=== PATIENT | male | born 1940 | race Caucasian/White ===

== ENCOUNTER 2016-09-01 07:22 | Day surgery (SDC) | payer BC, MEDICARE ==
[2016-09-01] MEDS ORDERED: fentaNYL 250 MCG/5 ML VIAL IVP ONE (08:00)
[2016-09-01] MEDS ORDERED: MIDAZOLAM 2 MG/2 ML VIAL IVP ONE (08:00)
[2016-09-01] MEDS ORDERED: LACTATED RINGERS 1,000 ML IV ONE (08:00)
[2016-09-01] MEDS ORDERED: BENZOCAINE/TETRACAINE/BUTAMBEN SPRAY 56 GM TOP ONE (08:19)
== END 2016-09-01 07:23 | disposition home or self-care (01) ==
PROC: 0DB38ZX Excision of Lower Esophagus, Via Natural or Artificial Opening Endoscopic, Diagnostic (ICD-10-PCS; 2016-09-01)
PROC: 0DBK8ZX Excision of Ascending Colon, Via Natural or Artificial Opening Endoscopic, Diagnostic (ICD-10-PCS; 2016-09-01)
PROC: 0DBH8ZX Excision of Cecum, Via Natural or Artificial Opening Endoscopic, Diagnostic (ICD-10-PCS; 2016-09-01)
PROC: 0DB98ZX Excision of Duodenum, Via Natural or Artificial Opening Endoscopic, Diagnostic (ICD-10-PCS; principal; 2016-09-01 08:30)
PROC: 0DB68ZX Excision of Stomach, Via Natural or Artificial Opening Endoscopic, Diagnostic (ICD-10-PCS; 2016-09-01 08:30)
DX: K29.50 Unspecified chronic gastritis without bleeding (principal); K44.9 Diaphragmatic hernia without obstruction or gangrene; K22.70 Barrett's esophagus without dysplasia; D12.0 Benign neoplasm of cecum; D12.2 Benign neoplasm of ascending colon; K22.2 Esophageal obstruction; K20.9 Esophagitis, unspecified; K57.30 Diverticulosis of large intestine without perforation or abscess without bleeding; K92.1 Melena
CPT/HCPCS: 43239; 45385; A9270; J3010; J7120

== ENCOUNTER 2016-09-05 11:04 | Emergency (ER) | payer BC ==
[2016-09-05] MEDS ORDERED: ACETAMINOPHEN 325 MG TABLET PO STA (12:21)
[2016-09-05] MEDS ORDERED: ACETAMINOPHEN 325 MG TABLET PO ONE (12:24)
== END 2016-09-05 14:57 | disposition home or self-care (01) ==
DX: R60.0 Localized edema (principal); M25.572 Pain in left ankle and joints of left foot; E03.9 Hypothyroidism, unspecified
CPT/HCPCS: 73610; 93971; 99283; A9270

== ENCOUNTER 2016-10-06 08:00 | Outpatient (CLI) | payer BC | END 2016-10-06 23:59 | disposition home or self-care (01) | DX: M10.9 Gout, unspecified (principal) ==

== ENCOUNTER 2017-05-04 12:23 | Day surgery (SDC) | payer BC ==
[2017-05-04] MEDS ORDERED: LACTATED RINGERS 1,000 ML IV ONE (12:48)
[2017-05-04] MEDS ORDERED: MIDAZOLAM 2 MG/2 ML VIAL IVP ONE (13:27)
[2017-05-04] MEDS ORDERED: fentaNYL 100 MCG/2 ML VIAL IVP ONE (13:27)
[2017-05-04] MEDS ORDERED: BENZOCAINE/TETRACAINE/BUTAMBEN SPRAY 56 GM TOP ONE (13:30)
[2017-05-04 13:57] VITALS: BP 110/54
== END 2017-05-04 12:24 | disposition home or self-care (01) ==
LOC: SDS 12:23
PROVIDERS: ATTEND Surgery
PROC: 0DB48ZX Excision of Esophagogastric Junction, Via Natural or Artificial Opening Endoscopic, Diagnostic (ICD-10-PCS; principal; 2017-05-04 13:30)
DX: K22.70 Barrett's esophagus without dysplasia (principal); K44.9 Diaphragmatic hernia without obstruction or gangrene; Z85.46 Personal history of malignant neoplasm of prostate
CPT/HCPCS: 43239; A9270; J7120

== ENCOUNTER 2017-10-19 09:54 | Outpatient (CLI) | payer BC ==
[2017-10-19 10:42] LABS: HB2 TOTAL 14.6 g/dL; HEMOGLOBIN A1C 0.55 g/dL; HEMOGLOBIN A1C % 5.6 % (4.6-6.2)
== END 2017-10-19 09:55 | disposition home or self-care (01) ==
LOC: LAB 09:54
PROVIDERS: ATTEND Internal Medicine
DX: E03.9 Hypothyroidism, unspecified (principal); R73.01 Impaired fasting glucose
CPT/HCPCS: 36415; 83036; 84443

== ENCOUNTER 2019-08-08 15:29 | Outpatient (CLI) | payer BC ==
--- NOTE | 2019-08-08 17:47 | Ultrasound Report ---
Reason: LEG PAIN, EDEMA Procedure Date: 08/08/2019 Accession Number: [id number] / [id number] Procedure: US - Duplex Ext Veins Left CPT Code: Final Report FULL RESULT: EXAM: LEFT LOWER EXTREMITY VENOUS ULTRASOUND EXAM DATE: 08/08/2019 05:25 PM. CLINICAL HISTORY: Left leg pain and edema. COMPARISON: DUPLEX EXT VEINS LEFT 09/05/2016 1:15 PM. TECHNIQUE: Real-time sonographic vascular imaging was performed by the government relations director through the lower extremity utilizing both color-flow and Doppler spectral analysis. Multiple member services representative static images were saved for review. FINDINGS: Common Femoral Vein (CFV): Normal. CFV-GSV Junction: Normal. Profunda Femoral Vein (PFV): Normal. Femoral Vein (FV) Prox: Normal. Femoral Vein (FV) Mid: Normal. Femoral Vein (FV) Dist: Normal. Popliteal Vein: Normal. Posterior Tibial Veins: Limited visualization. Peroneal Veins: Limited visualization. IMPRESSION: No evidence for deep venous thrombosis. [facility] The call report notification system was initiated by Dr. Cory Gnozales at 05:46 PM on 08/08/2019.
== END 2019-08-08 15:30 | disposition home or self-care (01) ==
LOC: DI 15:29
PROVIDERS: ATTEND Internal Medicine
DX: M79.662 Pain in left lower leg (principal); R60.9 Edema, unspecified

== ENCOUNTER 2019-08-09 09:42 | Outpatient (CLI) | payer BC ==
[2019-08-09 09:58] LABS: BASOPHILS % (AUTO) 0.4 %; EOSINOPHILS # (AUTO) 0.1 10^3/uL (0.0-0.7); EOSINOPHILS % (AUTO) 1.5 %; LYMPHOCYTES # (AUTO) 1.1 10^3/uL (1.5-3.5); LYMPHOCYTES % (AUTO) 24.1 %; MEAN CORPUSCULAR HEMOGLOBIN 30.3 pg (27.0-31.0); MEAN CORPUSCULAR HGB CONC 32.2 g/dL (32.0-36.0); MEAN CORPUSCULAR VOLUME 94.2 fL (80.0-94.0); MEAN PLATELET VOLUME 10.2 fL (7.4-11.4); MONOCYTES # (AUTO) 0.6 10^3/uL (0.0-1.0); MONOCYTES % (AUTO) 13.6 %; NEUTROPHILS # (AUTO) 2.8 10^3/uL (1.5-6.6); NEUTROPHILS % (AUTO) 59.8 %; PLT - PLATELET COUNT 169 10^3/uL (130-450); RED BLOOD COUNT 4.62 10^6/uL (4.70-6.10); RED CELL DISTRIBUTION WIDTH 13.7 % (12.0-15.0); WHITE BLOOD COUNT 4.6 x10^3/uL (4.8-10.8)
[2019-08-09 10:14] LABS: HB2 TOTAL 14.5 g/dL; HEMOGLOBIN A1C 0.66 g/dL; HEMOGLOBIN A1C % 6.3 % (4.6-6.2)
[2019-08-09 10:17] LABS: ALBUMIN/GLOBULIN RATIO 1.3 (1.0-2.2); ALKALINE PHOSPHATASE 52 IU/L (42-121); ALT ALANINE AMINOTRANSFERASE 24 IU/L (10-60); AST ASPARTATE AMINOTRANSFERASE 19 IU/L (10-42); BILIRUBIN,TOTAL 0.6 mg/dL (0.2-1.0); BUN - BLOOD UREA NITROGEN 18 mg/dL (6-20); CALCIUM 8.7 mg/dL (8.5-10.3); CARBON DIOXIDE - CO2 28 mmol/L (21-32); CHLORIDE 105 mmol/L (101-111); CHOL/HDL RATIO 4.4 (<5.0); CHOLESTEROL 170 mg/dL; CREATININE 1.2 mg/dL (0.6-1.2); GFR - MDRD 59 (>89); GLUCOSE 112 mg/dL (70-100); HDL CHOLESTEROL 39 mg/dL; LDL CHOLESTEROL,CALCULATED 107 mg/dL; LDL/HDL RATIO 2.7 (<3.6); SODIUM 141 mmol/L (135-145); URIC ACID 7.2 mg/dL (2.6-7.2); VLDL CHOLESTEROL 24 mg/dL
== END 2019-08-09 09:43 | disposition home or self-care (01) ==
LOC: LAB 09:42
PROVIDERS: ATTEND Internal Medicine
DX: C61 Malignant neoplasm of prostate (principal); R73.01 Impaired fasting glucose; M10.9 Gout, unspecified; Z13.6 Encounter for screening for cardiovascular disorders; Z79.899 Other long term (current) drug therapy; R05 Cough; M79.669 Pain in unspecified lower leg; H40.9 Unspecified glaucoma; I26.99 Other pulmonary embolism without acute cor pulmonale; K22.70 Barrett's esophagus without dysplasia; E03.9 Hypothyroidism, unspecified
CPT/HCPCS: 36415; 80053; 80061; 83036; 83721; 84153; 84443; 84550; 85025

== ENCOUNTER 2019-09-18 07:51 | Day surgery (SDC) | payer BC ==
[2019-09-18] MEDS ORDERED: LACTATED RINGERS 1,000 ML IV ONE (08:30)
[2019-09-18] MEDS ORDERED: LIDO GARGLE 30 ML BOTTLE ONE (08:32)
[2019-09-18] MEDS ORDERED: fentaNYL 250 MCG/5 ML VIAL IVP ONE (08:45)
[2019-09-18] MEDS ORDERED: MIDAZOLAM 2 MG/2 ML VIAL IVP ONE (08:45)
[2019-09-18 09:56] VITALS: BP 139/80
[2019-09-18] MEDS ORDERED: LIDO GARGLE 30 ML BOTTLE PO ONE (10:22)
== END 2019-09-18 07:52 | disposition home or self-care (01) ==
LOC: SDS 07:51
PROVIDERS: ATTEND Internal Medicine Gastroenterology
PROC: 0DB38ZX Excision of Lower Esophagus, Via Natural or Artificial Opening Endoscopic, Diagnostic (ICD-10-PCS; 2019-09-18)
PROC: 0DB68ZZ Excision of Stomach, Via Natural or Artificial Opening Endoscopic (ICD-10-PCS; 2019-09-18)
PROC: 0DJD8ZZ Inspection of Lower Intestinal Tract, Via Natural or Artificial Opening Endoscopic (ICD-10-PCS; principal; 2019-09-18 09:15)
PROC: 0DB48ZX Excision of Esophagogastric Junction, Via Natural or Artificial Opening Endoscopic, Diagnostic (ICD-10-PCS; 2019-09-18 09:15)
DX: K22.70 Barrett's esophagus without dysplasia (principal); Z12.11 Encounter for screening for malignant neoplasm of colon; K31.7 Polyp of stomach and duodenum; K57.30 Diverticulosis of large intestine without perforation or abscess without bleeding; D17.5 Benign lipomatous neoplasm of intra-abdominal organs; Z86.010 Personal history of colon polyps; E03.9 Hypothyroidism, unspecified; E66.9 Obesity, unspecified; Z68.35 Body mass index [BMI] 35.0-35.9, adult; M10.9 Gout, unspecified; H40.9 Unspecified glaucoma; Z90.49 Acquired absence of other specified parts of digestive tract; Z90.79 Acquired absence of other genital organ(s); Z85.46 Personal history of malignant neoplasm of prostate; Z87.891 Personal history of nicotine dependence; Z79.899 Other long term (current) drug therapy
CPT/HCPCS: 43239; A9270; G0105; J3010; J7120

== ENCOUNTER 2020-06-03 15:25 | Outpatient (CLI) | payer BC | END 2020-06-03 15:26 | disposition home or self-care (01) | LOC: LAB 15:25 | PROVIDERS: ATTEND Internal Medicine | DX: B34.9 Viral infection, unspecified (principal); Z20.828 Contact with and (suspected) exposure to other viral communicable diseases ==

== ENCOUNTER 2021-10-13 08:00 | Outpatient (CLI) | payer BC ==
[2021-10-13 16:43] LABS: BASOPHILS % (AUTO) 0.7 %; EOSINOPHILS # (AUTO) 0.3 10^3/uL (0.0-0.7); EOSINOPHILS % (AUTO) 5.6 %; HCT - HEMATOCRIT 45.5 % (42.0-52.0); HGB - HEMOGLOBIN 14.5 g/dL (14.0-18.0); LYMPHOCYTES # (AUTO) 1.4 10^3/uL (1.5-3.5); LYMPHOCYTES % (AUTO) 24.1 %; MEAN CORPUSCULAR HGB CONC 31.9 g/dL (32.0-36.0); MEAN CORPUSCULAR VOLUME 97.4 fL (80.0-94.0); MEAN PLATELET VOLUME 11.4 fL (7.4-11.4); MONOCYTES # (AUTO) 0.6 10^3/uL (0.0-1.0); MONOCYTES % (AUTO) 9.8 %; NEUTROPHILS # (AUTO) 3.4 10^3/uL (1.5-6.6); NEUTROPHILS % (AUTO) 59.1 %; PLT - PLATELET COUNT 200 10^3/uL (130-450); RED BLOOD COUNT 4.67 10^6/uL (4.70-6.10); RED CELL DISTRIBUTION WIDTH 13.4 % (12.0-15.0); WHITE BLOOD COUNT 5.7 x10^3/uL (4.8-10.8)
[2021-10-13 17:04] LABS: ALBUMIN 4.1 g/dL (3.2-5.5); ALBUMIN/GLOBULIN RATIO 1.2 (1.0-2.2); ALKALINE PHOSPHATASE 45 IU/L (42-121); ALT ALANINE AMINOTRANSFERASE 17 IU/L (10-60); AST ASPARTATE AMINOTRANSFERASE 14 IU/L (10-42); BILIRUBIN,TOTAL 0.5 mg/dL (0.2-1.0); BUN - BLOOD UREA NITROGEN 24 mg/dL (6-20); CALCIUM 8.9 mg/dL (8.5-10.3); CARBON DIOXIDE - CO2 27 mmol/L (21-32); CHLORIDE 104 mmol/L (101-111); CHOL/HDL RATIO 4.2 (<5.0); CHOLESTEROL 199 mg/dL; CREATININE 1.4 mg/dL (0.6-1.2); GFR - MDRD 49 (>89); GLUCOSE 103 mg/dL (70-100); HDL CHOLESTEROL 47 mg/dL; LDL CHOLESTEROL,CALCULATED 122 mg/dL; LDL/HDL RATIO 2.6 (<3.6); POTASSIUM 4.1 mmol/L (3.5-5.0); SODIUM 139 mmol/L (135-145); TOTAL PROTEIN 7.4 g/dL (6.7-8.2); TRIGLYCERIDES 148 mg/dL; URIC ACID 6.9 mg/dL (2.6-7.2); VLDL CHOLESTEROL 30 mg/dL
[2021-10-13 17:07] LABS: PSA TOTAL 0.02 ng/mL (0.000-2.000)
[2021-10-13 20:04] LABS: ESTIMATED AVERAGE GLUCOSE 120 mg/dL (70-100); HEMOGLOBIN A1c% 5.8 % (4.27-6.07)
== END 2021-10-13 23:59 ==
LOC: LAB.R 08:00
PROVIDERS: ATTEND Internal Medicine
DX: Z00.00 Encounter for general adult medical examination without abnormal findings (principal); K22.70 Barrett's esophagus without dysplasia; H40.9 Unspecified glaucoma; M10.9 Gout, unspecified; Z86.010 Personal history of colon polyps; Z86.718 Personal history of other venous thrombosis and embolism; Z86.711 Personal history of pulmonary embolism; E03.9 Hypothyroidism, unspecified; R73.01 Impaired fasting glucose; C61 Malignant neoplasm of prostate
CPT/HCPCS: 80053; 80061; 83036; 83721; 84153; 84443; 84550; 85025

== ENCOUNTER 2021-10-15 12:17 | Outpatient (CLI) | payer BC ==
--- NOTE | 2021-10-15 14:49 | XRAY Report ---
PROCEDURE: Hip w/Pelvis 2-3V LT INDICATIONS: LT HIP PAIN TECHNIQUE: AP pelvis with lateral view(s) of the left hip(s). COMPARISON: None. FINDINGS: Bones: No fractures or dislocations. Pelvic ring appears intact. No suspicious bony lesions. Mild bilateral hip degenerative change. Soft tissues: The visualized bowel gas pattern is normal. No suspicious soft tissue calcifications. Extensive pelvic surgical clips. IMPRESSION: Mild bilateral hip degenerative change. No evidence acute bony abnormality of the pelvis and left hip. If clinical suspicion and/or symptoms persist, further assessment with repeat plain films or advanced imaging (e.g., CT, MRI, or bone scan) may be helpful for further assessment. Reviewed by: Amanuel Torrez MD on 10/15/2021 2:48 PM PST Approved by: Amanuel Torrez MD on 10/15/2021 2:48 PM PST Station ID: [id number]
== END 2021-10-15 12:18 | disposition home or self-care (01) ==
LOC: DI 12:17
PROVIDERS: ATTEND Internal Medicine
DX: M16.0 Bilateral primary osteoarthritis of hip (principal)

== ENCOUNTER 2022-08-21 10:38 | Emergency (ER) | payer BC ==
--- NOTE | 2022-08-21 11:14 | XRAY Report ---
PROCEDURE: Ankle 3 View LT INDICATIONS: Trauma TECHNIQUE: 3 views of the ankle were acquired. COMPARISON: None FINDINGS: Bones: There is an oblique distal fibular fracture extending to the articular surface. Ankle mortise is normally aligned. No suspicious bony lesions. Soft tissues: No tibiotalar joint effusion. Achilles tendon appears normal. IMPRESSION: Oblique distal fibular fracture extending to the articular surface. Reviewed by: Amanuel Torrez MD on 08/21/2022 11:13 AM [facility] Approved by: Amanuel Torrez MD on 08/21/2022 11:13 AM PST Station ID: [id number]
--- NOTE | 2022-08-21 12:42 | ED Physician Documentation ---
PD HPI LOWER EXT INJURY - Stated complaint Stated Complaint: FALL ON THE ICE - Chief complaint Chief Complaint: Trauma Ext - History obtained from History obtained from: Patient - History of Present Illness PD HPI LOW EXT INJURY LOCATION: Left, Ankle Type of injury: Fall (slipped on icy surface) Where injury occurred: Home Timing - onset: Yesterday Timing - details: Abrupt onset, Still present Associated symptoms: Swelling, Discolored. No: Weakness, Numbness Contributing factors: No: Anticoagulated Similar symptoms before: Has not had sx before Recently seen: Not recently seen Review of Systems Constitutional: denies: Fever Nose: denies: Rhinorrhea / runny nose, Congestion Throat: denies: Sore throat Cardiac: denies: Chest pain / pressure Respiratory: denies: Cough GI: denies: Abdominal Pain, Vomiting, Diarrhea Musculoskeletal: denies: Neck pain, Back pain Neurologic: denies: Focal weakness, Numbness, Altered mental status, Headache, LOC PD PAST MEDICAL HISTORY - Past Medical History Cardiovascular: None Respiratory: None Endocrine/Autoimmune: HyPOthyroidism GI: GERD, Colon polyps, Diverticulitis, Other : None, Other HEENT: Glaucoma Psych: None Musculoskeletal: None Derm: None - Past Surgical History General: Bowel surgery, Colonoscopy - Present Medications Home Medications: Ambulatory Orders Medication Instructions Recorded Confirmed Latanoprost 2.5 ml OP DAILY 09/01/16 05/04/17 Levothyroxine Sodium [Synthroid] 88 mcg PO DAILY 09/01/16 05/04/17 Timolol 0.5% Ophth Drops [Timoptic 75 drops EACHEYE DAILY 09/01/16 05/04/17 0.5% Ophth Drops] Omeprazole 40 mg ORAL DAILY 09/05/16 05/04/17 Probenecid 500 mg PO DAILY 04/30/17 05/04/17 Multivitamin [Multiple Vitamins] 1 DAILY 05/04/17 - Allergies Allergies/Adverse Reactions: Allergies Allergy/AdvReac Type Severity Reaction Status Date / Time No Known Drug Allergies Allergy Verified 08/21/22 10:53 - Living Situation Living Situation: reports: With spouse/s.o. Living Arrangement: reports: At home (they have a cruise scheduled for next week, and need note stating ankle fracture to get refund through travel insurance. ) - Social History Does the pt smoke?: No Smoking Status: Never smoker Does the pt drink ETOH?: Yes Does the pt have substance abuse?: No - Immunizations Immunizations are current?: Yes PD ED PE NORMAL - Vitals Vital signs reviewed: Yes - General General: Alert and oriented X 3, No acute distress, Well developed/nourished - Back Back: No spinal TTP - Derm Derm: Normal color, Warm and dry Results - Vitals Vitals: Vital Signs - 24 hr 08/21/22 08/21/22 10:45 13:52 Temperature 36.7 C 36.5 C Heart Rate 70 78 Respiratory 16 16 Rate Blood Pressure 168/65 H 160/75 H O2 Saturation 98 98 Oxygen O2 Source Room air - Rads (name of study) left ankle Radiology: Prelim report reviewed, EMP read indepedently (oblique fibular fracture to angle of mortis. nondisplaced. ), See rad report Procedures - Splint (location) - Minor left ankle Splint applied by: Tech Type of splint: Other (boot orthosis) Other: Patient tolerated well, No complications, Neurovascular intact, Crutches provided PD Medical Decision Making - ED course Complexity details: reviewed results (fibular fracture), considered differential, d/w patient Departure - Departure Disposition: 01 Home, Self Care Clinical Impression: Fracture of distal fibula Qualifiers: Encounter type: initial encounter Fracture type: closed Fracture morphology: unspecified fracture morphology Laterality: left Qualified Code(s): S82.832A - Other fracture of upper and lower end of left fibula, initial encounter for closed fracture Condition: Stable Record reviewed to determine appropriate education?: Yes Instructions: ED Fx Ankle Lateral Malleolus Follow-Up: Tevin Morrison MD [Provider Admit Priv/Credential] - Comments: Ice elevate and rest the ankle often to help minimize swelling. Use the cast boot for the next 4 to 6 weeks. Crutches initially for partial to no weightbearing as able. Follow-up with orthopedics in about 1-1/2 to 2 weeks, call today for an appointment with the orthopedic clinic. You will not be able to do regular weightbearing nor prolonged standing or movement for 4 to 6 weeks. I wrote a note regarding your upcoming cruise and travel insurance. Tylenol or ibuprofen or naproxen as needed for pains. You should have the cast boot on most all the time including sleep initially until otherwise guided from the orthopedics. It can be removed briefly for cleaning or changing socks etc. but otherwise left on. Forms: Activity restrictions Discharge Date/Time: 08/21/22 13:53
[2022-08-21 13:54] VITALS: BP 160/75
== END 2022-08-21 13:53 | disposition home or self-care (01) ==
LOC: ED 10:38
DX: S82.832A Other fracture of upper and lower end of left fibula, initial encounter for closed fracture (principal); W00.0XXA Fall on same level due to ice and snow, initial encounter
CPT/HCPCS: 99283

== ENCOUNTER 2023-04-27 16:49 | Outpatient (CLI) | payer BC ==
[2023-04-27 17:33] LABS: CREATININE 1.5 mg/dL (0.6-1.3); POTASSIUM 4.1 mmol/L (3.5-4.5)
== END 2023-04-27 16:50 | disposition home or self-care (01) ==
LOC: LAB 16:49
PROVIDERS: ATTEND Internal Medicine
DX: N28.9 Disorder of kidney and ureter, unspecified (principal); Z11.1 Encounter for screening for respiratory tuberculosis
CPT/HCPCS: 36415; 80048; 81599; 86480